=== PATIENT | female | born 1940 | race Caucasian/White ===

== ENCOUNTER → 2016-08-28 | Outpatient (CLI) | payer BC ==
[~2016-08-28] MED LIST: ASPI81TA28 PO; BIOT10TA2 PO; CHOL1000 PO; CHOL100010 PO; CYAN10005 PO; LEVO75TA5 PO; LEVO88TA3 PO; MULTTAB58 PO; OMEG10007 PO; OXYC1TAB3 PO; PANT40TA PO; SOLI5TAB2 PO; TAMS0.4C38 PO; TROS20TA3 PO; VTMB122500 PO
--- NOTE | 2016-08-28 12:51 | DIAGNOSTIC IMAGING REPORT ---
Brain MRI WITHOUT CONTRAST HISTORY: Mental status change G81.94 Left [id number] TECHNIQUE: Multiplanar multisequence MRI of the brain was performed without the use of contrast. COMPARISON STUDY: None. FINDINGS: There are no areas of restricted diffusion to suggest acute infarction. The midline structures are intact. The paranasal sinuses are clear. The mastoid air cells are clear. The ventricles and sulci are within normal limits for age. There is no mass, hematoma, midline shift. The major vascular flow-voids at the skull base are well maintained. Moderate chronic small vessel change consistent with age. Sella and parasellar regions are unremarkable. IMPRESSION: 1. No acute intracranial abnormality. 2. Mild to moderate chronic small vessel change throughout both cerebral hemispheres. 3. No acute intracranial abnormality Electronically signed by: Geovany Ceballos M.D. 08/28/2016 12:49 PM
== END | disposition home or self-care (01) ==
LOC: C.MRI 11:44
PROVIDERS: ATTEND Psychiatry & Neurology Neurology
DX: G81.94 Hemiplegia, unspecified affecting left nondominant side (principal)

== ENCOUNTER → 2016-10-30 | Outpatient (CLI) | payer BC ==
[~2016-10-30] MED LIST changes: -BIOT10TA2 PO; -CHOL1000 PO; -CYAN10005 PO; -OXYC1TAB3 PO; -TAMS0.4C38 PO; -TROS20TA3 PO
--- NOTE | 2016-10-30 14:02 | DIAGNOSTIC IMAGING REPORT ---
VIDEO SWALLOW STUDY CLINICAL HISTORY: Dysphagia. COMPARISON STUDY: No priors. Fluoroscopy time: 2.5 minutes. FINDINGS: Fluoroscopic guidance was provided to the Department of Speech Pathology and performing a video swallow study. The patient consumed barium-impregnated pudding, cracker with paste, nectar thick liquid, and thin barium while the swallowing mechanism was observed in real-time. No penetration or aspiration was seen with any of the sampled textures. Esophageal dysmotility is observed. IMPRESSION: 1. No penetration or aspiration was identified with any of the sampled textures. 2. Esophageal dysmotility. 3. See dedicated speech pathology report for detailed findings and recommendations. Dictated: 10/30/2016 1:47 PM Transcribed: 10/30/2016 2:01 PM [place]man Electronically signed by: Thong Tolentino M.D. 10/30/2016 2:38 PM Dictated Date/Time: 10/30/2016 1:47 PM
== END | disposition home or self-care (01) ==
LOC: C.RAD 08:28
PROVIDERS: ATTEND Internal Medicine
DX: R13.10 Dysphagia, unspecified (principal); K22.4 Dyskinesia of esophagus; E03.9 Hypothyroidism, unspecified; E78.5 Hyperlipidemia, unspecified; R53.1 Weakness

== ENCOUNTER → 2016-10-30 | Outpatient (CLI) | payer BC ==
[2016-10-30 09:38] LABS: MEAN CORPUSCULAR HEMOGLOBIN 32.4 pg (25-34); MEAN CORPUSCULAR HGB CONC 34.9 g/dl (32-36); MEAN PLATELET VOLUME 10.5 fL (7.4-10.4); PLATELET COUNT 205 K/uL (130-400); RED BLOOD COUNT 4.41 M/uL (4.2-5.4); WHITE BLOOD COUNT 4.25 K/uL (4.8-10.8)
[2016-10-30 09:53] LABS: ALT/SGPT 35 U/L (12-78); AST/SGOT 24 U/L (15-37); BLOOD UREA NITROGEN 21 mg/dl (7-18); BUN/CREATININE RATIO 22.6 (10-20); CALCIUM 8.7 mg/dl (8.5-10.1); CARBON DIOXIDE 25 mmol/L (21-32); CHLORIDE 108 mmol/L (98-107); CHOLESTEROL 240 mg/dl (0-200); CREATININE 0.93 mg/dl (0.60-1.20); GLUCOSE 91 mg/dl (70-99); POTASSIUM 4.1 mmol/L (3.5-5.1); SODIUM 143 mmol/L (136-145); TRIGLYCERIDES 70 mg/dl (0-150); VERY LOW DENSITY LIPOPROT CALC 14 mg/dl
[2016-10-30 10:05] LABS: ALB/GLOB RATIO 1.2 (0.9-2); ALKALINE PHOSPHATASE 88 U/L (45-117); CHOLESTEROL/HDL RATIO 4.5; HDL CHOLESTEROL 53 mg/dl; LDL CHOLESTEROL CALCULATED 173 mg/dl; THYROID STIMULATING HORMONE 0.105 uIu/ml (0.300-4.500)
--- NOTE | 2016-10-30 15:00 | SWALLOWING EVALUATION ---
HISTORY: This 76 year-old woman was referred for a VFSS at [facility] in order to rule out aspiration. The patient reports that she feels food and liquid getting "stuck" in her throat and that at times it causes her to cough. Food that become stuck are more ticker or pasty type foods such as mashed potatoes and applesauce. She also reports she will have episodes of vomiting associated with this. While she eats, she needs to drink plenty of water. The patient has a PMH significant for GERD. She participated in an EGD on 02/20/16 which found a moderately sized Schatzki's ring (dilated) and a small hiatal hernia. Her current diet is regular. PROCEDURE: The patient was seen in the Radiology Department of [facility] for the VFSS. Cursory examination of the oral cavity revealed natural dentition in fair condition. Movement of the articulators was wnl. The patient was seated upright on a stool and was viewed in both the Anterior-Posterior (A-P) and Lateral planes. Volitional phonation exercises completed in the A-P plane revealed bilateral vocal fold movement and vocal intensity to be wnl. In the lateral plane, the patient was given the following boluses: 1 tsp. thin liquid barium x 2, single swallow thin liquid barium self-presented from a cup, serial swallows of thin liquid barium self-presented via straw, 1 tsp. nectar-thick liquid barium, single swallow nectar-thick liquid barium self-presented from a cup, 1 tsp. barium pudding, and 1 club cracker with barium paste. The patient was then repositioned into the A-P plane and given the following boluses: 1 tsp. nectar-thick liquid barium and 1 tsp. barium pudding. RESULTS: Oral Stage: Lip closure was adequate. The patient was able to maintain a cohesive liquid bolus upon command during the liquid bolus hold task. Mastication was slow and prolonged. Lingual motion for bolus transport was also slow to initiate and disorganized. Piecemeal like deglutition was observed. There was retention lining the tongue after the swallow. The initiation of the pharyngeal swallow was delayed, and triggered when the bolus head reached the pyriforms. Pharyngeal Stage: Soft palate elevation was complete. Laryngeal elevation revealed partial superior movement of the thyroid cartilage and partial approximation of the arytenoids to the epiglottic base. Anterior hyoid excursion was partially reduced. Epiglottic deflection was incomplete and did not invert past the horizontal position. Laryngeal vestibular closure was incomplete, with a narrow column of air (scant amounts of contrast) being located in the vestibule at the height of the swallow. The pharyngeal stripping wave was present and incomplete. The opening to the pharyngoesophageal segment was also partially reduced, with partial distention and duration of the opening and partial obstruction of bolus flow. Tongue base retraction was reduced, with a wide column of contrast being located between the tongue base and pharyngeal wall during the swallow. There was retention located along the tongue base, in the valleculae, along the aryepiglottic folds, and in the pyriforms after the swallow. There was no evidence of aspiration during this study. Scant amounts of laryngeal penetration were noted with thin liquids only. The patient did have a weak swallow in general, with reduced ROM. This resulted in retention throughout the pharynx after the initial swallow. She did have good sensation to this, and elicited multiple effortful swallows to clear the pharynx. This was effective in general, but needed 3-4 swallow to clear, in particular as viscosity increased. A liquid wash also assisted. Esophageal stage: There was evidence mid-distal esophageal retention. A liquid wash did assist, but was not effective to completely clearing the retention. 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 SUMMARY/RECOMMENDATIONS: This patient presents mild-moderate oral-pharyngeal dysphagia. She also presents with esophageal dysfunction. The following is recommended: 1. Moist soft diet, thin liquids. Use of sauces and gravies with meals. 2. Aspiration and GERD precautions, straws OK. Fully upright for all p.o. intake and for 30-60 minutes after meals. HOB elevated to at least 30 degrees at all times, even while asleep. 3. Safe swallow strategies: Avoid foods of increased viscosity. Alternate solids and liquids, rest breaks as needed. 4. Would benefit from outpatient speech therapy services for dysphagia, with focus on overall pharyngeal strengthening (to include but not limited to, Stephanie maneuver, Ede Maneuver, effortful swallowing etc). Would also benefit from further education and training on diet consistency and safe swallow strategies. A summary of the results and recommendations was discussed with the patient immediately following the study with verbal understanding. Thank you for referral of this patient. Please contact me at if any additional information is needed.
--- NOTE | 2016-11-14 07:39 | CODING QUERY MEDICAL NECESSITY ---
SUPPORTING DIAGNOSIS NEEDED Dr. Sharif, A supporting diagnosis is required for the test/procedure performed on this patient in order for us to be reimbursed by the patient's insurance. Please provide a supporting diagnosis for the following test/procedure listed below next to the test name along with your signature. *If there is no additional diagnosis for this patient that would support the following test/procedure please document that below next to the test/procedure. Test(s)/Procedure(s) that require a supporting diagnosis: * ([id number]) VITAMIN D ASSAY DIAGNOSIS: DATE OF SERVICE: 10/30/16 Provider Signature: Date: Thank you Raoul Webber [facility] Information Management Once completed, please kindly fax back to [phone] For questions please call [phone]
== END | disposition home or self-care (01) ==
LOC: C.LAB 08:09
PROVIDERS: ATTEND Family Medicine
DX: E03.9 Hypothyroidism, unspecified (principal); E78.5 Hyperlipidemia, unspecified; R53.1 Weakness; E55.9 Vitamin D deficiency, unspecified

== ENCOUNTER → 2017-02-12 | Outpatient (CLI) | payer BC ==
[2017-02-12 13:02] LABS: MAGNESIUM 2.2 mg/dl (1.8-2.4); THYROID STIMULATING HORMONE 0.175 uIu/ml (0.300-4.500)
== END | disposition home or self-care (01) ==
LOC: C.LAB 10:03
PROVIDERS: ATTEND Family Medicine
DX: E03.9 Hypothyroidism, unspecified (principal)

== ENCOUNTER → 2017-04-17 | Outpatient (CLI) | payer BC ==
--- NOTE | 2017-04-17 15:58 | MAMMOGRAPHY REPORT ---
BILATERAL DIGITAL SCREENING MAMMOGRAM WITH CAD: 04/17/2017 CLINICAL HISTORY: Routine screening. Patient has no complaints. TECHNIQUE: Bilateral CC and MLO views were obtained. Current study was also evaluated with a Compute r Aided Detection (CAD) system. COMPARISON: Comparison is made to exams dated: 04/16/2016 mammogram, 04/14/2015 mammogram - [facility], 10/21/2013 mammogram, 10/20/2012 mammogram, 06/18/2011 mammogram, and 06/16/2010 ma mmogram. BREAST COMPOSITION: The tissue of both breasts is heterogeneously dense, which may obscure small mas ses. FINDINGS: There are scattered stable benign rim and round microcalcifications. No new suspicious mas s, architectural distortion or cluster of microcalcifications is seen. IMPRESSION: ACR BI-RADS CATEGORY 1: NEGATIVE There is no mammographic evidence of malignancy. A 1 year screening mammogram is recommended. The pa tient will receive written notification of the results. Approximately 10% of breast cancers are not detected with mammography. A negative mammographic report should not delay biopsy if a clinically suggestive mass is present. Dahlia Romero M.D. ay/:04/17/2017 10:37:54 Health Sciences Program Coordinator: Pati VILLANUEVA(R)(M), [facility] letter sent: Normal 1/2 BI-RADS Code: ACR BI-RADS Category 1: Negative
== END | disposition home or self-care (01) ==
LOC: C.MAMM 09:20
PROVIDERS: ATTEND Family Medicine
DX: Z12.31 Encounter for screening mammogram for malignant neoplasm of breast (principal)

== ENCOUNTER → 2017-06-11 | Outpatient (CLI) | payer BC ==
[2017-06-11 09:37] LABS: HEMATOCRIT 39.6 % (37-47); MEAN CELL VOLUME 93.2 fL (80-100); MEAN CORPUSCULAR HEMOGLOBIN 31.3 pg (25-34); MEAN CORPUSCULAR HGB CONC 33.6 g/dl (32-36); MEAN PLATELET VOLUME 10.3 fL (7.4-10.4); PLATELET COUNT 214 K/uL (130-400); RED BLOOD COUNT 4.25 M/uL (4.2-5.4); WHITE BLOOD COUNT 5.46 K/uL (4.8-10.8)
[2017-06-11 10:00] LABS: ALT/SGPT 26 U/L (12-78); BLOOD UREA NITROGEN 17 mg/dl (7-18); CARBON DIOXIDE 30 mmol/L (21-32); CHLORIDE 108 mmol/L (98-107); CHOLESTEROL 224 mg/dl (0-200); CREATININE 0.79 mg/dl (0.60-1.20); GLUCOSE 95 mg/dl (70-99); MAGNESIUM 2.2 mg/dl (1.8-2.4); POTASSIUM 4.4 mmol/L (3.5-5.1); SODIUM 141 mmol/L (136-145); TRIGLYCERIDES 102 mg/dl (0-150); VERY LOW DENSITY LIPOPROT CALC 20 mg/dl
[2017-06-11 10:09] LABS: ALB/GLOB RATIO 1.1 (0.9-2); ALKALINE PHOSPHATASE 87 U/L (45-117); AST/SGOT 21 U/L (15-37); HDL CHOLESTEROL 45 mg/dl; LDL CHOLESTEROL CALCULATED 159 mg/dl; THYROID STIMULATING HORMONE 0.499 uIu/ml (0.300-4.500)
== END | disposition home or self-care (01) ==
LOC: C.LAB 08:18
PROVIDERS: ATTEND Family Medicine
DX: E78.5 Hyperlipidemia, unspecified (principal); E03.9 Hypothyroidism, unspecified; E55.9 Vitamin D deficiency, unspecified

== ENCOUNTER → 2017-07-29 | Outpatient (CLI) | payer BC | END | disposition home or self-care (01) | LOC: C.MAMM 14:01 | PROVIDERS: ATTEND Family Medicine | DX: M85.89 Other specified disorders of bone density and structure, multiple sites (principal) ==

== ENCOUNTER 2017-08-25 16:03 | Emergency (ER) | payer BC ==
[~2017-08-25] VITALS: Ht 177.8 cm; Wt 70.0 kg
[2017-08-25 16:08] VITALS: TEMP 36.3; Ht 177.8 cm; Wt 70.0 kg
[2017-08-25] MEDS ORDERED: SODIUM CHLORIDE 0.9% 1000ML 1,000 ML IV STA (16:23)
[2017-08-25] MEDS ORDERED: CHOL1000 PO (16:29)
[2017-08-25] MEDS ORDERED: OPTIRAY 320 IV PRN (16:30)
[2017-08-25] MEDS ORDERED: TROS20TA3 PO (16:36)
[2017-08-25] MEDS ORDERED: BIOT10TA2 PO (16:36)
[2017-08-25] MEDS ORDERED: CYAN10005 PO (16:38)
[2017-08-25 16:39] LABS: BASO % 0.2 %; BASO ABS # 0.01 K/uL (0-0.2); EOS % 3.8 %; HEMATOCRIT 36.5 % (37-47); HEMOGLOBIN 12.7 g/dL (12.0-16.0); IG# 0.01 K/uL (0.00-0.02); LYMPH ABS # 1.42 K/uL (1.2-3.4); MEAN CELL VOLUME 92.4 fL (80-100); MEAN CORPUSCULAR HEMOGLOBIN 32.2 pg (25-34); MEAN CORPUSCULAR HGB CONC 34.8 g/dl (32-36); MEAN PLATELET VOLUME 9.8 fL (7.4-10.4); MONO % 5.1 %; MONO ABS # 0.27 K/uL (0.11-0.59); NEUT % 63.7 %; NEUT ABS # 3.34 K/uL (1.4-6.5); PLATELET COUNT 195 K/uL (130-400); RED CELL DISTRIBUTION WIDTH CV 12.7 % (11.5-14.5); WHITE BLOOD COUNT 5.25 K/uL (4.8-10.8)
[2017-08-25] MEDS ORDERED: ONDANSETRON INJ 2 MG/ML 2 ML VIAL IV STA (16:45)
[2017-08-25 17:08] LABS: ALBUMIN 3.6 gm/dl (3.4-5.0); CALCIUM 8.6 mg/dl (8.5-10.1); CREATININE 0.94 mg/dl (0.60-1.20); POTASSIUM 3.4 mmol/L (3.5-5.1)
[2017-08-25 17:11] LABS: TOTAL PROTEIN 6.8 gm/dl (6.4-8.2)
--- NOTE | 2017-08-25 17:43 | DIAGNOSTIC IMAGING REPORT ---
ABD/PELVIS IV CONTRAST ONLY CT DOSE: 306.14 mGy.cm HISTORY: Pain llq abd pain TECHNIQUE: Multiaxial CT images of the abdomen and pelvis were performed following the use of intravenous contrast. A dose lowering technique was utilized adhering to the principles of ALARA. COMPARISON STUDY: None. FINDINGS: Mild bibasilar atelectasis. Liver is uniform throughout. Several small gallstones are present within the gallbladder lumen. Right kidney shows and neck to renal pelvis but is negative for hydronephrosis. Left kidney shows hydronephrosis combine with extrarenal pelvis. There is a small amount of perinephric fluid. Left ureter is distended as compared to the right. This distention extends to the distal left ureter where a 4 x 3.4 mm calculus is identified. This is approximately 2 cm proximal to the left ureterovesical junction. Bladder is midline. There are no contained calcifications. Bowel pattern overall is nonobstructive. Appendix is unremarkable. IMPRESSION: 1. Obstructing calculus measuring 4 x 3.4 mm distal left ureter. This is 2 cm from the left ureterovesical junction. 2. Significant left hydroureteronephrosis. 3. Mild/Moderate fluid extravasation to the left perinephric space suggesting calyceal rupture 4. Several small gallstones within the gallbladder lumen. 5. Nonobstructive bowel pattern. 6. Normal appendix. The above report was generated using voice recognition software. It may contain grammatical, syntax or spelling errors. Electronically signed by: Geovany Ceballos M.D. 08/25/2017 5:42 PM Dictated Date/Time: 08/25/2017 5:37 PM
[2017-08-25] MEDS ORDERED: OXYC-737 PO (19:07)
[2017-08-25] MEDS ORDERED: TAMS0.4C38 PO (19:07)
[2017-08-25] MEDS ORDERED: OXYCODONE IR HOME PACK PO ONE (19:15)
[2017-08-25 19:40] VITALS: BP 164/81; PULSE 93; O2SAT 95
--- NOTE | 2017-08-25 19:41 | DIAGNOSTIC IMAGING REPORT ---
KUB CLINICAL HISTORY: stone for OP follow up nephrocalcinosis COMPARISON STUDY: CT same date FINDINGS: Residual contrast within the urinary tracts and left ureter. 4 mm obstructing calculus distal left ureter. Nonobstructive bowel pattern. IMPRESSION: 4 mm obstructing calculus distal left ureter. The above report was generated using voice recognition software. It may contain grammatical, syntax or spelling errors. Electronically signed by: Geovany Ceballos M.D. 08/25/2017 7:40 PM Dictated Date/Time: 08/25/2017 7:39 PM
--- NOTE | 2017-08-25 20:57 | EMERGENCY ROOM VISIT NOTE ---
History Report prepared by Augustoibsuad: Nazanin Hobbs Under the Supervision of: Gina JenkinsO. First contact with patient: 16:11 Chief Complaint: ABDOMINAL PAIN Stated Complaint: PAIN IN LOWER ABDOMEN QUADRANT, CHILLS, WEAK History of Present Illness The patient is a 77 year old female who presents to the Emergency Room with complaints of intermittent LLQ abdominal pain that started earlier this evening as she was cooking dinner. She rates her discomfort as a 5/10 in severity and describes it as feeling "achey" in nature. She reports the pain initially subsided, so she started to eat dinner, then she became weak, diaphoretic and started experiencing the chills. She also experienced nausea but has not vomited. She has undergone a hysterectomy in the past but still has her gallbladder and appendix. Her last BM was last night and normal. Patient denies headache, change in vision, fevers above 100.4 degrees, chest pain, shortness of breath, diarrhea, pain with urination, acute weakness in the arms or legs, rashes and melena. The patient also denies any recent sick contacts. 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 A total of 10 systems reviewed and were otherwise negative. Past Medical & Surgical Surgical Problems: (1) History of hysterectomy Social History Smoking Status: Former Smoker Alcohol Use: none Drug Use: none Marital Status: Housing Status: lives with family Occupation Status: retired Current/Historical Medications Scheduled Aspirin (Aspirin Ec), 81 MG PO QPM Biotin (Biotin), 1 TAB PO BID Cholecalciferol (Vitamin D3), 1,000 UNITS PO DAILY Cyanocobalamin (Vitamin B-12), 1,000 MCG PO SATURDAY AND SATURDAY Fish Oil ([place]-3), 1 CAP PO BID Levothyroxine Sodium (Levothyroxine Sodium), 75 MCG PO SATURDAY Levothyroxine Sodium (Levothyroxine Sodium), 88 MCG PO EVERYDAY BUT SATURDAY Multiple Vitamin (Multivitamin), 1 TAB PO QPM Pantoprazole (Protonix), 40 MG PO QAM Tamsulosin Hcl (Flomax), 0.4 MG PO DAILY Trospium Chloride (Trospium Chloride), 20 MG PO DAILY Scheduled PRN Oxycodone Immediate Rel Tab (Roxicodone Ir), 5 MG PO Q6H PRN for Pain Allergies Coded Allergies: No Known Allergies (Verified , 08/25/17) Physical Exam Vital Signs Date Time Temp Pulse Resp B/P (MAP) Pulse Ox O2 Delivery O2 Flow Rate FiO2 08/25/17 19:40 93 18 164/81 95 Room Air 08/25/17 17:53 90 17 161/81 96 Room Air 08/25/17 16:08 36.3 76 17 157/80 100 Room Air Physical Exam GENERAL: Sitting up in bed, alert, well appearing, well nourished, no distress, non-toxic EYE EXAM: normal conjunctiva. PERRL and EOM's intact. OROPHARYNX: no exudate, no erythema, lips, buccal mucosa, and tongue normal and mucous membranes are moist NECK: supple, no nuchal rigidity, no adenopathy, non-tender LUNGS: Clear to auscultation. Normal chest wall mechanics HEART: no murmurs, S1 normal and S2 normal ABDOMEN: abdomen soft, minimal tenderness in LLQ, normo-active bowel sounds, no masses, no rebound or guarding. BACK: Back is symmetrical on inspection and there is no deformity, no midline tenderness, no CVA tenderness. SKIN: no rashes and no bruising UPPER EXTREMITIES: upper extremities are grossly normal. LOWER EXTREMITIES: No pitting edema. NEURO EXAM: Normal sensorium, cranial nerves II-XII intact, normal speech, no weakness of arms, no weakness of legs. No drift. Finger to nose intact. Gross sensation intact. Medical Decision & Procedures ER Provider Diagnostic Interpretation: Radiology results as stated below per my review and the radiologist's interpretation: ABD/PELVIS IV CONTRAST ONLY CT DOSE: 306.14 mGy.cm HISTORY: Pain llq abd pain TECHNIQUE: Multiaxial CT images of the abdomen and pelvis were performed following the use of intravenous contrast. A dose lowering technique was utilized adhering to the principles of ALARA. COMPARISON STUDY: None. FINDINGS: Mild bibasilar atelectasis. Liver is uniform throughout. Several small gallstones are present within the gallbladder lumen. Right kidney shows and neck to renal pelvis but is negative for hydronephrosis. Left kidney shows hydronephrosis combine with extrarenal pelvis. There is a small amount of perinephric fluid. Left ureter is distended as compared to the right. This distention extends to the distal left ureter where a 4 x 3.4 mm calculus is identified. This is approximately 2 cm proximal to the left ureterovesical junction. Bladder is midline. There are no contained calcifications. Bowel pattern overall is nonobstructive. Appendix is unremarkable. IMPRESSION: 1. Obstructing calculus measuring 4 x 3.4 mm distal left ureter. This is 2 cm from the left ureterovesical junction. 2. Significant left hydroureteronephrosis. 3. Mild/Moderate fluid extravasation to the left perinephric space suggesting calyceal rupture 4. Several small gallstones within the gallbladder lumen. 5. Nonobstructive bowel pattern. 6. Normal appendix. The above report was generated using voice recognition software. It may contain grammatical, syntax or spelling errors. Electronically signed by: Geovany Ceballos M.D. 08/25/2017 5:42 PM KUB CLINICAL HISTORY: stone for OP follow up nephrocalcinosis COMPARISON STUDY: CT same date FINDINGS: Residual contrast within the urinary tracts and left ureter. 4 mm obstructing calculus distal left ureter. Nonobstructive bowel pattern. IMPRESSION: 4 mm obstructing calculus distal left ureter. The above report was generated using voice recognition software. It may contain grammatical, syntax or spelling errors. Electronically signed by: Geovany Ceballos M.D. 08/25/2017 7:40 PM Laboratory Results 08/25/17 15:25 Red Blood Count 3.95, Mean Corpuscular Volume 92.4, Mean Corpuscular Hemoglobin 32.2, Mean Corpuscular Hemoglobin Concent 34.8, Mean Platelet Volume 9.8, Neutrophils (%) (Auto) 63.7, Lymphocytes (%) (Auto) 27.0, Monocytes (%) (Auto) 5.1, Eosinophils (%) (Auto) 3.8, Basophils (%) (Auto) 0.2, Neutrophils # (Auto) 3.34, Lymphocytes # (Auto) 1.42, Monocytes # (Auto) 0.27, Eosinophils # (Auto) 0.20, Basophils # (Auto) 0.01 08/25/17 15:25 Test 08/25/17 15:25 08/25/17 17:15 White Blood Count 5.25 K/uL (4.8-10.8) Red Blood Count 3.95 M/uL (4.2-5.4) Hemoglobin 12.7 g/dL (12.0-16.0) Hematocrit 36.5 % (37-47) Mean Corpuscular Volume 92.4 fL (80-100) Mean Corpuscular Hemoglobin 32.2 pg (25-34) Mean Corpuscular Hemoglobin Concent 34.8 g/dl (32-36) Platelet Count 195 K/uL (130-400) Mean Platelet Volume 9.8 fL (7.4-10.4) Neutrophils (%) (Auto) 63.7 % Lymphocytes (%) (Auto) 27.0 % Monocytes (%) (Auto) 5.1 % Eosinophils (%) (Auto) 3.8 % Basophils (%) (Auto) 0.2 % Neutrophils # (Auto) 3.34 K/uL (1.4-6.5) Lymphocytes # (Auto) 1.42 K/uL (1.2-3.4) Monocytes # (Auto) 0.27 K/uL (0.11-0.59) Eosinophils # (Auto) 0.20 K/uL (0-0.5) Basophils # (Auto) 0.01 K/uL (0-0.2) RDW Standard Deviation 43.0 fL (36.4-46.3) RDW Coefficient of Variation 12.7 % (11.5-14.5) Immature Granulocyte % (Auto) 0.2 % Immature Granulocyte # (Auto) 0.01 K/uL (0.00-0.02) Anion Gap 5.0 mmol/L (3-11) Est Creatinine Clear Calc Drug Dose 55.1 ml/min Estimated GFR () 68.3 Estimated GFR (Non- 58.9 BUN/Creatinine Ratio 20.0 (10-20) Calcium Level 8.6 mg/dl (8.5-10.1) Total Bilirubin 0.5 mg/dl (0.2-1) Direct Bilirubin 0.1 mg/dl (0-0.2) Aspartate Amino Transf (AST/SGOT) 26 U/L (15-37) Alanine Aminotransferase (ALT/SGPT) 35 U/L (12-78) Alkaline Phosphatase 74 U/L (45-117) Total Protein 6.8 gm/dl (6.4-8.2) Albumin 3.6 gm/dl (3.4-5.0) Lipase 62 U/L (73-393) Urine Color YELLOW Urine Appearance CLEAR (CLEAR) Urine pH 6.5 (4.5-7.5) Urine Specific [place] 1.017 (1.000-1.030) Urine Protein NEG (NEG) Urine Glucose (UA) NEG (NEG) Urine Ketones TRACE (NEG) Urine Occult Blood NEG (NEG) Urine Nitrite NEG (NEG) Urine Bilirubin NEG (NEG) Urine Urobilinogen NEG (NEG) Urine Leukocyte Esterase SMALL (NEG) Urine WBC (Auto) 1-5 /hpf (0-5) Urine RBC (Auto) 0-4 /hpf (0-4) Urine Hyaline Casts (Auto) 1-5 /lpf (0-5) Urine Epithelial Cells (Auto) 10-20 /lpf (0-5) Urine Bacteria (Auto) NEG (NEG) Laboratory results per my review. Medications Administered Medications (Trade) Dose Ordered Sig/Chelly Route Start Time Stop Time Status Last Admin Dose Admin Sodium Chloride 1,000 ml @ 999 mls/hr Q1H1M STAT IV 08/25/17 16:23 08/25/17 17:23 DC 08/25/17 16:28 999 MLS/HR Ondansetron HCl (Zofran Inj) 4 mg NOW STAT IV 08/25/17 16:45 08/25/17 16:46 DC 08/25/17 16:52 4 MG Oxycodone HCl (Roxicodone Immediate Rel 5MG Home Pack) 1 homepack UD ONCE PO 08/25/17 19:15 08/25/17 19:16 DC 08/25/17 19:39 1 HOMEPACK ECG Indication: abdominal pain Rate (beats per minute): 68 Rhythm: sinus rhythm Findings: left axis deviation, no ectopy ED Course ED COURSE: Vital signs were reviewed and showed the patient is hypertensive. The patients medical record was reviewed The above diagnostic studies were performed and reviewed. ED treatments and interventions as stated above. 1617: The patient was evaluated in room B2. A complete history and physical examination was performed. 1623: NSS 1000 ml @ 999 mls/hr IV. 1645: Zofran 4 mg IV. 1817: I discussed the patients case with Dr. Barboza, [facility]. He will follow up with the patient in the office. 1909: Upon reevaluation, the patient is feeling much better. I discussed my findings with the patient and she understands and agrees with the treatment plan. 1914: Oxycodone HCl 5 mg 1 homepack PO. Based on the patients age, coexisting illnesses, exam and lab findings the decision to treat as an outpatient was made. The patient remained stable while under my care. The patient appeared well at the time of discharge. Medical Decision Differential diagnoses includes but is not limited to gastritis, peptic ulcer disease, GERD, gallbladder disease, pancreatitis, small bowel obstruction, acute coronary syndrome, pericarditis, ischemic bowel, irritable bowel disease, irritable bowel syndrome, appendicitis, diverticulitis, malignancy, hernia, urinary tract infection, torsion, perforation, trauma, infectious. 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 She is completely neurologically intact. On exam she has minimal tenderness. Vitals are unremarkable. CBC all BMP, LFTs, bilirubin lipase was insignificant. UA shows no infection. CT abdomen and pelvis shows a 4 x 4 millimeter stone 2 cm from the left UVJ with significant hydronephrosis and rupture of the left calyceal. With these findings are consulted with urology. They recommended if the patient is pain-free or comfortable she can go home and follow-up on Saturday. Discussed with the patient and she declined any pain meds while in the ER. There is no signs of infection. Creatinine was unremarkable. KUB was performed per the request of urology. Patient was discharged on Flomax and OxyIR. Discussed with care management and they will assist with follow-up on Saturday with urology. Discussed with Pt concerning signs and symptoms to watch out for. Pt was instructed to follow up with their PCP and discussed with the patient their option to return to the ED at anytime for persistent or worsening symptoms. The appropriate anticipatory guidance and out-patient management, including indications for return to the emergency department, were explained at length to the patient and understood. Medication Reconcilliation Current Medication List: was personally reviewed by me Blood Pressure Screening Patient's blood pressure: Elevated blood pressure Blood pressure disposition: Referred to PCP Consults Time Called: 1814 Consulting Physician: [facility] Returned Call: 1817 I discussed the patients case with [facility]. He will follow up with the patient in the office. Impression Primary Impression: Renal colic on left side Additional Impressions: Hydronephrosis Hypokalemia Scribe Attestation The scribe's documentation has been prepared under my direction and personally reviewed by me in its entirety. I confirm that the note above accurately reflects all work, treatment, procedures, and medical decision making performed by me. Departure Information Dispostion Home / Self-Care Prescriptions Tamsulosin Hcl (FLOMAX) 0.4 Mg Cap 0.4 MG PO DAILY, #10 CAP Prov: Eliud Franklin, DO 08/25/17 Oxycodone Immediate Rel Tab (ROXICODONE IR) 5 Mg Tab 5 MG PO Q6H Y for Pain, #14 TAB Prov: Eliud Franklin, DO 08/25/17 Referrals No Doctor, Assigned (PCP) Patient Instructions ED Stone Renal W Colic, My [facility] Additional Instructions Please follow up with your primary care doctor with in the next 24 hours. Any worsening of your symptoms, please return to the ED immediately. This includes any fevers greater than 100.4, worsening pain, chest pain, shortness breath, persistent nausea, vomiting, unable to eat or drink, or any other concerning signs or symptoms from your standpoint. You were given medications during this visit that will inhibit your ability to drive, operate machinery and work. Please do NOT drive, operate machinery or work for the next 12hrs. You were also given a prescription for a narcotic. While taking this medication you should also not drive, operate machinery and or work. You have a 4 x 3 cm left distal ureteral stone with a large amount of swelling of her kidney and ureter. If you have any fevers about 100.4 please return immediately to the ER. You have any new pain or worsening pain please return. Please call Saturday to get an appointment and be seen by urology as soon as possible. Problem Qualifiers Additional Impressions: Hydronephrosis Hydronephrosis type: unspecified Qualified Codes: N13.30 - Unspecified hydronephrosis
== END 2017-08-25 19:44 | disposition home or self-care (01) ==
LOC: C.EDB 16:04
DX: N23 Unspecified renal colic (principal); N13.30 Unspecified hydronephrosis; E87.6 Hypokalemia; Z87.891 Personal history of nicotine dependence; Z90.710 Acquired absence of both cervix and uterus; Z79.82 Long term (current) use of aspirin

== ENCOUNTER → 2017-10-01 | Outpatient (CLI) | payer BC ==
[~2017-10-01] MED LIST changes: +BIOT10TA2 PO; +CHOL1000 PO; -CHOL100010 PO; +CYAN10005 PO; +OXYC1TAB3 PO; -SOLI5TAB2 PO; +TROS20TA3 PO; -VTMB122500 PO
--- NOTE | 2017-10-01 08:43 | DIAGNOSTIC IMAGING REPORT ---
KUB CLINICAL HISTORY: 77 years-old Female presenting with N20.1 Ureteric stone. TECHNIQUE: Single supine view of the abdomen was obtained. COMPARISON: 08/25/2017. FINDINGS: Moderate stool burden primarily in the right colon. Nonobstructive bowel gas pattern. No gross pneumoperitoneum. Atherosclerosis. Prominent splenic arterial calcifications noted. Evaluation of the renal shadows is highly limited given the presence of extensive stool. Pelvic phleboliths unchanged in distribution. The previously noted distal left ureteral calculus is not radiographically apparent. Osteopenia suspected. Mild degenerative changes in the lower lumbar spine. IMPRESSION: 1. Moderate stool burden significantly degrades evaluation for renal calculi. 2. The previously noted distal left ureteral calculus is not visualized on the current radiograph. Electronically signed by: Jacobo Ceja M.D. 10/01/2017 8:41 AM Dictated Date/Time: 10/01/2017 8:38 AM
== END | disposition home or self-care (01) ==
LOC: C.RAD 08:23
PROVIDERS: ATTEND Urology
DX: N20.1 Calculus of ureter (principal)

== ENCOUNTER → 2017-12-03 | Outpatient (CLI) | payer BC ==
[2017-12-03 12:27] LABS: HEMOGLOBIN 12.6 g/dL (12.0-16.0); MEAN CELL VOLUME 91.1 fL (80-100); MEAN CORPUSCULAR HEMOGLOBIN 30.2 pg (25-34); MEAN CORPUSCULAR HGB CONC 33.2 g/dl (32-36); MEAN PLATELET VOLUME 10.4 fL (7.4-10.4); PLATELET COUNT 258 K/uL (130-400); RED CELL DISTRIBUTION WIDTH CV 13.2 % (11.5-14.5); RED CELL DISTRIBUTION WIDTH SD 43.8 fL (36.4-46.3); WHITE BLOOD COUNT 5.06 K/uL (4.8-10.8)
[2017-12-03 12:37] LABS: ALBUMIN 3.3 gm/dl (3.4-5.0); ALT/SGPT 31 U/L (12-78); AST/SGOT 25 U/L (15-37); BLOOD UREA NITROGEN 15 mg/dl (7-18); CALCIUM 8.6 mg/dl (8.5-10.1); CARBON DIOXIDE 30 mmol/L (21-32); GLUCOSE 91 mg/dl (70-99); POTASSIUM 3.7 mmol/L (3.5-5.1); SODIUM 140 mmol/L (136-145)
[2017-12-03 12:48] LABS: ALKALINE PHOSPHATASE 95 U/L (45-117); TOTAL PROTEIN 6.6 gm/dl (6.4-8.2)
== END | disposition home or self-care (01) ==
LOC: C.LAB 10:23
PROVIDERS: ATTEND Family Medicine
DX: E03.9 Hypothyroidism, unspecified (principal); M85.80 Other specified disorders of bone density and structure, unspecified site; E53.8 Deficiency of other specified B group vitamins; E55.9 Vitamin D deficiency, unspecified; R79.89 Other specified abnormal findings of blood chemistry

== ENCOUNTER → 2018-04-18 | Outpatient (CLI) | payer BC ==
[~2018-04-18] MED LIST changes: -OXYC1TAB3 PO
--- NOTE | 2018-04-18 14:29 | MAMMOGRAPHY REPORT ---
BILATERAL DIGITAL SCREENING MAMMOGRAM TOMOSYNTHESIS WITH CAD: 04/18/2018 CLINICAL HISTORY: Routine screening. Patient has no complaints. TECHNIQUE: Breast tomosynthesis in addition to standard 2D mammography was performed. Current study w as also evaluated with a Computer Aided Detection (CAD) system. COMPARISON: Comparison is made to exams dated: 04/17/2017 mammogram, [facility]16[facility]2016 [facility], 10/20/2012 mammogram, and 06/18/2011 [facility] mogram. BREAST COMPOSITION: The tissue of both breasts is heterogeneously dense, which may obscure small mass es. FINDINGS: No suspicious masses, calcifications, or areas of architectural distortion are noted in either breast . There has been no significant interval change compared to prior exams. Scattered bilateral benign-a ppearing calcifications are not significantly changed. IMPRESSION: ACR BI-RADS CATEGORY 2: BENIGN There is no mammographic evidence of malignancy. A 1 year screening mammogram is recommended.( 019) The patient will receive written notification of the results. Some breast cancers are not detected with mammography. A negative mammographic report should not jinny y biopsy if a clinically suggestive mass is present. Radha Prado M.D. ah/:04/18/2018 13:44:39 Devops Architect: RT Holly(Lorraine)(M), [facility] letter sent: Normal 1/2 BI-RADS Code: ACR BI-RADS Category 2: Benign
== END | disposition home or self-care (01) ==
LOC: C.MAMM 10:23
PROVIDERS: ATTEND Family Medicine
DX: Z12.31 Encounter for screening mammogram for malignant neoplasm of breast (principal)